=== PATIENT | female | born 1965 | race African-American/Black ===

== ENCOUNTER 2020-02-25 18:38 | Emergency (ER) | payer SELFPAY ==
--- NOTE | 2020-02-25 20:11 | ER Document Report ---
ED Extremity Problem, Upper - General Chief Complaint: Elbow Injury Stated Complaint: RIGHT ELBOW/ARM PAIN Time Seen by Provider: 02/25/20 20:05 Primary Care Provider: CARLIE WILLARD JR, DO [ACTIVE PROVISIONAL STAFF] - Follow up tomorrow Mode of Arrival: Ambulatory Information source: Patient Notes: 54-year-old female presents to ED for complaint of right elbow pain times a month. 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 She states she thought she just pulled a little bit and it was going to go away but it is still hurting so she is come to the emergency room to have it examined. She states she does not have a primary care doctor so she has not followed up with anybody. She states she had no past medical history of any problems. She states she does not take any medicines. She states she does smoke half pack a day does not drink or do any drugs. She does work as a [employer]. TRAVEL OUTSIDE OF THE [place] IN LAST 30 DAYS: No - HPI Patient complains to provider of: Injury, Pain, Right, Elbow Onset: Other - Times a month Recent injury: Possibly - month ago Where: Work Quality of pain: Achy Severity of pain: Moderate Pain Level: 4 Context: Other - Lifting resident a month ago Associated symptoms: Other - Right elbow Exacerbated by: Movement, Exertion Relieved by: Nothing Similar symptoms previously: Yes Recently seen / treated by doctor: No - Related Data Allergies/Adverse Reactions: No Known Allergies Allergy (Unverified 07/23/15 13:25) Past Medical History - General Information source: Patient - Social History Smoking Status: Current Every Day Smoker Cigarette use (# per day): Yes - 1/2 pack/day Smoking Education Provided: Yes - 3 minutes Frequency of alcohol use: None Drug Abuse: None 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 Family History: Reviewed & Not Pertinent Patient has suicidal ideation: No Patient has homicidal ideation: No - Past Medical History Cardiac Medical History: Reports: None Pulmonary Medical History: Reports: None EENT Medical History: Reports: None Neurological Medical History: Reports: Hx Migraine Endocrine Medical History: Reports: None Renal/ Medical History: Reports: None Malignancy Medical History: Reports: None GI Medical History: Reports: None Musculoskeletal Medical History: Reports None Skin Medical History: Reports None Psychiatric Medical History: Reports: None Traumatic Medical History: Reports: None Infectious Medical History: Reports: None Past Surgical History: Reports: Hx Tubal Ligation - Immunizations Hx Diphtheria, Pertussis, Tetanus Vaccination: No Review of Systems - Review of Systems Constitutional: No symptoms reported EENT: No symptoms reported Cardiovascular: No symptoms reported Respiratory: No symptoms reported Gastrointestinal: No symptoms reported Genitourinary: No symptoms reported Female Genitourinary: No symptoms reported Musculoskeletal: Joint pain - Right elbow, Joint swelling Skin: No symptoms reported Hematologic/Lymphatic: No symptoms reported Neurological/Psychological: No symptoms reported -: Yes All other systems reviewed and negative Physical Exam - Vital signs Vitals: Temp Pulse Resp BP Pulse Ox 98.7 F 85 16 117/65 96 02/25/20 18:44 02/25/20 18:44 02/25/20 18:44 02/25/20 18:44 02/25/20 18:44 Interpretation: Normal - General General appearance: Appears well, Alert - HEENT Head: Normocephalic, Atraumatic Eyes: Normal Pupils: PERRL - Respiratory Respiratory status: No respiratory distress Chest status: Nontender Breath sounds: Normal Chest palpation: Normal - Cardiovascular Rhythm: Regular Heart sounds: Normal auscultation Murmur: No - Abdominal Inspection: Normal Distension: No distension Bowel sounds: Normal Tenderness: Nontender Organomegaly: No organomegaly - Back Back: Normal, Nontender - Extremities General upper extremity: Normal color, Normal temperature General lower extremity: Normal inspection, Nontender, Normal color, Normal ROM, Normal temperature, Normal weight bearing. No: David's sign Elbow: Tender, Other - Minimal swelling. No: Limited ROM - Full range of motion - Neurological Neuro grossly intact: Yes Cognition: Normal Orientation: AAOx4 Severo Coma Scale Eye Opening: Spontaneous [place] Coma Scale Verbal: Oriented Severo Coma Scale Motor: Obeys Commands [place] Coma Scale Total: 15 Speech: Normal Motor strength normal: LUE, RUE, LLE, RLE Sensory: Normal - Psychological Associated symptoms: Normal affect, Normal mood - Skin Skin Temperature: Warm Skin Moisture: Dry Skin Color: Normal Course - Re-evaluation Re-evalutation: 02/25/20 21:59 X-ray was negative for any acute injury. Patient has been hurting for a month. She states she thinks she may have pulled something at work. She was given a written report of her x-ray and a work note to no lifting more than 20 pounds until followed up with orthopedics. There was some slight swelling to the elbow. She was given the name and number of Dr. Willard for the follow-up with us. Patient was discharged home with instructions for elevation ice and ibuprofen. Patient verbalized understanding and agreement with treatment plan and patient was discharged home. - Vital Signs Vital signs: Temp Pulse Resp BP Pulse Ox 98.7 F 64 16 128/75 H 100 02/25/20 18:44 02/25/20 21:20 02/25/20 21:20 02/25/20 21:20 02/25/20 21:20 - Diagnostic Test Radiology reviewed: Image reviewed, Reports reviewed Discharge - Discharge Clinical Impression: Right elbow pain Condition: Stable Disposition: HOME, SELF-CARE Additional Instructions: You were seen today for pain in your right elbow. There is no acute fractures noted on your x-ray. I have given you a copy of your x-ray to your elbow and I will give you a referral to radiology. Ice & Elevation Apply ice packs frequently against the painful area. Many different schedules are recommended, such as "20 minutes on, 20 minutes off" or "one hour ice, two hours rest." If you need to work, you may need to go longer between ice treatments. You should plan to have the area ice packed AT LEAST one-fourth of the time. The ice should be applied over the wrap, tape, or splint, or over a layer of cloth -- not directly against the skin. Some ice bags have a built-in cloth and can be put directly on the skin. Your injured part should be elevated as much as possible over the next 48 hours. Try to keep the injury above the level of the heart. Avoid use of the injured area. Elevation and rest will decrease the swelling. Ibuprofen Ibuprofen is an excellent, safe drug for pain control. In addition, it has potent antiinflammatory effects which are beneficial, especially in the treatment of injuries, arthritis, or tendonitis. It's best to take ibuprofen with food. Persons with ulcer disease or allergy to aspirin should notify their physician of this before taking ibuprofen. Take the medication exactly as prescribed. Don't take additional doses unless instructed to do so by your doctor. If you develop wheezing, shortness of breath, hives, faintness, stomach pain, vomiting, or dark black stools, return for re-evaluation at once. FOLLOW-UP CARE: If you have been referred to a physician for follow-up care, call the physicians office for an appointment as you were instructed or within the next two days. If you experience worsening or a significant change in your symptoms, notify the physician immediately or return to the Emergency Department at any time for re-evaluation. Forms: Special Work Note Referrals: CARLIE WILLARD JR, DO [ACTIVE PROVISIONAL STAFF] - Follow up tomorrow
--- NOTE | 2020-02-25 21:01 | RADIOLOGY REPORT (SQ) ---
Right elbow radiographs:02/25/2020 8:05 PM CDT HISTORY: 54-year-old patient with right elbow pain . COMPARISON: None available TECHNIQUE: AP, oblique, and lateral images of the right elbow were obtained. FINDINGS: The visualized soft tissues appear grossly unremarkable. No large joint effusion is noted. No abnormal soft tissue calcifications are seen. There are no findings to suggest an acute fracture or subluxation of the right elbow. IMPRESSION: There are no findings to suggest an acute fracture or subluxation of the right elbow.
[2020-02-25 21:21] VITALS: BP 128/75
== END 2020-02-25 21:20 | disposition home or self-care (01) ==
LOC: ER 18:38
DX: M25.521 Pain in right elbow (principal); X50.0XXA Overexertion from strenuous movement or load, initial encounter; Y93.F2 Activity, caregiving, lifting; Y99.0 Civilian activity done for income or pay; F17.210 Nicotine dependence, cigarettes, uncomplicated
CPT/HCPCS: 99283; 99406